=== PATIENT | female | born 1995 | race Caucasian/White ===

== ENCOUNTER 2016-11-19 16:31 | Emergency (ER) | payer MEDICAID ==
[~2016-11-19] VITALS: Ht 154.9 cm; Wt 90.7 kg
[2016-11-19 17:00] VITALS: BP 131/72; PULSE 81; RESP 16; TEMP 97.6; O2SAT 99
--- NOTE | 2016-11-19 17:00 | NUR ---
ER DISHWASHER BUSSER VARMA at TRIAGE examining patient.
--- NOTE | 2016-11-19 17:04 | NUR ---
Patient triaged and placed in waiting room. VSS and patient appears in no acute distress at this time. Accompanied by SON, awaiting available bed, and MD notified of need for MSE.
[2016-11-19] MEDS ORDERED: IBUPROFEN 600 MG TABLET PO ONE (17:15)
--- NOTE | 2016-11-19 17:28 | NUR ---
Patient to [facility] for evaluation. Side rails up. Report given to SAL BROWNLEE.
--- NOTE | 2016-11-19 17:35 | NUR ---
PT. TO ER FOR LEFT SHOULDER PAIN THAT RADIATES TO HER NECK AND LOWER ARM, STATES THAT SHE WAS PLAYING WITH HER DAUGHTER THIS MORNING AND PULLED MUSCLE PAIN 5/10, NO OTHER COMPLAINTS
--- NOTE | 2016-11-19 17:35 | NUR ---
ARINA HODGSON AT BEDSIDE EXAMINING THE PT.
[2016-11-19 18:20] VITALS: BP 126/77; PULSE 67; RESP 17; TEMP 98.4; O2SAT 99
--- NOTE | 2016-11-19 18:20 | NUR ---
Patient given written and verbal discharge instructions and verbalizes understanding. ER STEEL PLATE CAULKER ARINA discussed with patient the results and treatment provided. Patient in stable condition. ID arm band removed. Rx of NEPROXEN given. Patient educated on pain management and to follow up with PMD. Pain Scale 0/10 Opportunity for questions provided and answered.
== END 2016-11-19 18:20 | disposition home or self-care (01) ==
LOC: SED 16:31
DX: S46.912A Strain of unspecified muscle, fascia and tendon at shoulder and upper arm level, left arm, initial encounter (principal); X50.9XXA Other and unspecified overexertion or strenuous movements or postures, initial encounter; Y93.89 Activity, other specified; Y99.8 Other external cause status; Y92.89 Other specified places as the place of occurrence of the external cause
CPT/HCPCS: 73030; 81025; 99284

== ENCOUNTER 2017-02-23 21:25 | Emergency (ER) | payer MEDICAID ==
[~2017-02-23] VITALS: Ht 152.4 cm; Wt 90.7 kg
[2017-02-23 21:49] VITALS: BP_SYST 126
--- NOTE | 2017-02-23 23:08 | NUR ---
Patient triaged and placed in waiting room. VSS and patient appears in no acute distress at this time. Accompanied by partner , awaiting available bed, and MD notified of need for MSE.Report given to Nohemy
--- NOTE | 2017-02-23 23:24 | NUR ---
Patient to ER bed 3 to gown for evaluation. Side rails up. Report given to SAL DIAZ.
--- NOTE | 2017-02-23 23:35 | NUR ---
Pt came in for laceration of the R middle and R index fingers. Bleeding controlled. Will continue to monitor. No other injuries or complaints mentioned/noted. No distress noted.
--- NOTE | 2017-02-24 00:08 | NUR ---
ER Dr. Chaparro at bedside examining patient.
[2017-02-24] MEDS ORDERED: LIDOCAINE 1% 10 MG/ML, 20 ML MDV IJ ONE (00:30)
[2017-02-24] MEDS ORDERED: BACITRACIN 1 GM OINT TP ONE (00:30)
[2017-02-24 01:33] VITALS: BP_SYST 124
--- NOTE | 2017-02-24 01:33 | NUR ---
Patient given written and verbal discharge instructions and verbalizes understanding. ER MD discussed with patient the results and treatment provided. Patient in stable condition. ID arm band removed. No Rx of given. Patient educated on pain management and to follow up with PMD. Pain Scale 0/10 . Opportunity for questions provided and answered.
== END 2017-02-24 01:33 | disposition home or self-care (01) ==
LOC: SED 21:25
DX: S61.210A Laceration without foreign body of right index finger without damage to nail, initial encounter (principal); S61.212A Laceration without foreign body of right middle finger without damage to nail, initial encounter; X58.XXXA Exposure to other specified factors, initial encounter; Y93.89 Activity, other specified; Y92.89 Other specified places as the place of occurrence of the external cause; Y99.8 Other external cause status
CPT/HCPCS: 12001; 99283; J2001

== ENCOUNTER 2017-03-02 17:40 | Emergency (ER) | payer MEDICAID ==
[~2017-03-02] VITALS: Ht 152.4 cm; Wt 90.7 kg
[2017-03-02 17:51] VITALS: BP_SYST 150
[2017-03-02 18:47] VITALS: BP_SYST 150
== END 2017-03-02 18:47 | disposition home or self-care (01) ==
LOC: SED 17:40
DX: S61.210D Laceration without foreign body of right index finger without damage to nail, subsequent encounter (principal); X58.XXXD Exposure to other specified factors, subsequent encounter; Y92.89 Other specified places as the place of occurrence of the external cause; Y99.8 Other external cause status
CPT/HCPCS: 99283

== ENCOUNTER 2017-03-11 13:36 | Emergency (ER) | payer MEDICAID ==
[~2017-03-11] VITALS: Ht 152.4 cm; Wt 90.7 kg
[2017-03-11 14:40] VITALS: BP_SYST 126
--- NOTE | 2017-03-11 14:40 | NUR ---
Patient triaged and placed in waiting room. VSS and patient appears in no acute distress at this time. Accompanied by self, awaiting available bed, and MD ZIMMER complete
--- NOTE | 2017-03-11 14:40 | NUR ---
Pt seen and evaluated by Dr. Walls
--- NOTE | 2017-03-11 15:18 | NUR ---
Patient given written and verbal discharge instructions and verbalizes understanding. ER MD discussed with patient the results and treatment provided. Patient in stable condition. ID arm band removed. Rx of cephalexin given. Patient educated on pain management and to follow up with PMD. Pain Scale 0/10. Opportunity for questions provided and answered.
[2017-03-11 15:19] VITALS: BP_SYST 126
== END 2017-03-11 15:19 | disposition home or self-care (01) ==
LOC: SED 13:36
DX: H10.9 Unspecified conjunctivitis (principal)
CPT/HCPCS: 99283

== ENCOUNTER 2017-03-26 16:37 | Emergency (ER) | payer MEDICAID ==
[~2017-03-26] VITALS: Ht 152.4 cm; Wt 96.2 kg
[2017-03-26 16:37] VITALS: BP_SYST 133
[2017-03-26] MEDS ORDERED: ONDANSETRON 4 MG ODT TAB PO ONE (17:00)
[2017-03-26] MEDS ORDERED: MECLIZINE HCL 25 MG TABLET (ANITVERT) PO ONE (17:00)
[2017-03-26 17:13] LABS: BASOPHILS # (AUTO) 0.1 K/uL (0.0-0.2); BASOPHILS % (AUTO) 0.6 % (0.0-2.0); EOSINOPHILS % (AUTO) 0.3 % (0.0-4.0); HEMATOCRIT 43.5 % (36-48); HEMOGLOBIN 14.4 g/dL (12.0-16.0); LYMPHOCYTES # (AUTO) 1.8 K/uL (1.0-5.5); LYMPHOCYTES % (AUTO) 11.4 % (20.5-51.5); MEAN CORPUSCULAR HEMOGLOBIN 29 pg (27-31); MEAN CORPUSCULAR HGB CONC 33 % (32-36); MEAN CORPUSCULAR VOLUME 86 fL (79.0-98.0); MONOCYTES # (AUTO) 0.7 K/uL (0.0-1.0); MONOCYTES % (AUTO) 4.2 % (1.7-9.3); NEUTROPHILS # (AUTO) 12.9 K/uL (1.8-7.7); NEUTROPHILS % (AUTO) 83.5 % (40.0-70.0); PLATELET COUNT (AUTO) 306 K/uL (130-430); RED BLOOD CELL COUNT(AUTO) 5.06 MIL/uL (4.2-6.2); RED CELL DISTRIBUTION WIDTH 12.2 % (9.0-15.0); WHITE BLOOD COUNT (AUTO) 15.5 K/uL (4.8-10.8)
[2017-03-26 17:29] LABS: PROTHROMBIN TIME 10.8 SECS (9.5-12.5)
[2017-03-26 17:31] LABS: ANION GAP 8 (5-15); CALCIUM 8.6 mg/dL (8.4-11.0); CHLORIDE 107 mmol/L (98-107); CREATININE 0.77 mg/dL (0.55-1.30); GLUCOSE 109 mg/dL (70-99); POTASSIUM 3.4 mmol/L (3.5-5.1); SODIUM SERUM 141 mmol/L (136-145); UREA NITROGEN, BLOOD 13 mg/dL (8-21)
[2017-03-26 17:34] LABS: GFR AFRICAN AMERICAN 118 mL/min (>90)
[2017-03-26 17:35] LABS: ACETAMINOPHEN < 1 ug/mL (1-30); ALCOHOL, BLOOD < 3 mg/dL (<10); SALICYLATE 3 mg/dL (3-30)
[2017-03-26] MEDS ORDERED: NACL 0.9% 1,000 ML IV ONE (18:30)
[2017-03-26 18:43] LABS: BILIRUBIN,URINE NEGATIVE (NEGATIVE); BLOOD, URINE NEGATIVE (NEGATIVE); CLARITY/URINE HAZY (CLEAR); COLOR,URINE YELLOW (YELLOW); GLUCOSE,URINE NEGATIVE (NEGATIVE); KETONES,URINE NEGATIVE (NEGATIVE); LEUKOCYTE ESTERASE ,URINE NEGATIVE (NEGATIVE); NITRITE, URINE NEGATIVE (NEGATIVE); PH,URINE 6.5 (5.0-8.0); PROTEIN URINE NEGATIVE (NEGATIVE); UROBILINOGEN,URINE 0.2 (0.2-1.0)
[2017-03-26 18:56] LABS: BARBITURATE, URINE NEGATIVE (NEG <=200); BENZODIAZEPINE, URINE NEGATIVE (NEG <=150); CANNABINOID, URINE NEGATIVE (NEG <=50); COCAINE, URINE NEGATIVE (NEG <=150); METHAMPHETAMINES SCREEN,URINE NEGATIVE (NEG <=500); OPIATE, URINE NEGATIVE (NEG <=100); PHENCYCLIDINE SCREEN,URINE NEGATIVE (NEG <=25); UR TRICYCLIC ANTIDEPRESSANTS NEGATIVE (NEG <=300); URINE AMPHETAMINE NEGATIVE (NEG <=500); URINE METHADONE NEGATIVE (NEG <=200); URINE OXYCODONE SCREEN NEGATIVE (NEG <=100); URINE PROPOXYPHENE SCREEN NEGATIVE (NEG <=300)
[2017-03-26] MEDS ORDERED: POTASSIUM CHLORIDE 10 MEQ TAB.PRT.SR PO ONE (19:15)
[2017-03-26] MEDS ORDERED: cefTRIAXone 1 GM IVPB PREMIX 50 ML IV ONE (19:15)
[2017-03-26] MEDS ORDERED: ONDANSETRON HCL 4 MG/2 ML VIAL IVP ONE (19:45)
[2017-03-26 20:50] VITALS: BP_SYST 133
== END 2017-03-26 20:50 | disposition home or self-care (01) ==
LOC: SED 16:37
DX: H66.90 Otitis media, unspecified, unspecified ear (principal); R42 Dizziness and giddiness
CPT/HCPCS: 36415; 70450; 71020; 80048; 80307; 81003; 81025; 84484; 85025; 85610; 85730; 93005; 96365; 96375; 99285; G0480; G0481; G0482; J0696; J2405; J7030; J8597; Q0162

== ENCOUNTER 2017-06-09 12:58 | Emergency (ER) | payer MEDICAID ==
[~2017-06-09] VITALS: Ht 152.4 cm; Wt 95.3 kg
[2017-06-09 13:00] VITALS: BP_SYST 110
[2017-06-09 13:50] LABS: BILIRUBIN,URINE NEGATIVE (NEGATIVE); BLOOD, URINE NEGATIVE (NEGATIVE); CLARITY/URINE SL HAZY (CLEAR); COLOR,URINE YELLOW (YELLOW); GLUCOSE,URINE NEGATIVE (NEGATIVE); KETONES,URINE NEGATIVE (NEGATIVE); LEUKOCYTE ESTERASE ,URINE NEGATIVE (NEGATIVE); NITRITE, URINE NEGATIVE (NEGATIVE); PROTEIN URINE NEGATIVE (NEGATIVE); UROBILINOGEN,URINE 0.2 (0.2-1.0)
[2017-06-09] MEDS ORDERED: PHENAZOPYRIDINE HCL 100 MG TABLET PO ONE (14:00)
[2017-06-09 15:31] VITALS: BP_SYST 110
== END 2017-06-09 15:31 | disposition home or self-care (01) ==
LOC: SED 12:58
DX: N76.0 Acute vaginitis (principal)
CPT/HCPCS: 81003; 81025; 87210-TC; 99284

== ENCOUNTER 2017-08-18 08:25 | Emergency (ER) | payer MEDICAID ==
[~2017-08-18] VITALS: Ht 152.4 cm; Wt 97.5 kg
[2017-08-18 08:33] VITALS: BP_SYST 124
[2017-08-18] MEDS ORDERED: IBUPROFEN 800 MG TABLET PO ONE (08:45)
[2017-08-18 09:16] LABS: BASOPHILS % (AUTO) 0.5 % (0.0-2.0); EOSINOPHILS # (AUTO) 0.1 K/uL (0.0-0.4); EOSINOPHILS % (AUTO) 1.9 % (0.0-4.0); HEMOGLOBIN 14.4 g/dL (12.0-16.0); LYMPHOCYTES # (AUTO) 1.5 K/uL (1.0-5.5); LYMPHOCYTES % (AUTO) 30.8 % (20.5-51.5); MEAN CORPUSCULAR HEMOGLOBIN 29 pg (27-31); MEAN CORPUSCULAR HGB CONC 34 % (32-36); MEAN CORPUSCULAR VOLUME 86 fL (79.0-98.0); MONOCYTES # (AUTO) 0.5 K/uL (0.0-1.0); MONOCYTES % (AUTO) 10.3 % (1.7-9.3); NEUTROPHILS # (AUTO) 2.8 K/uL (1.8-7.7); NEUTROPHILS % (AUTO) 56.5 % (40.0-70.0); PLATELET COUNT (AUTO) 272 K/uL (130-430); RED BLOOD CELL COUNT(AUTO) 5.01 MIL/uL (4.2-6.2); RED CELL DISTRIBUTION WIDTH 11.9 % (9.0-15.0); WHITE BLOOD COUNT (AUTO) 4.9 K/uL (4.8-10.8)
[2017-08-18 09:22] LABS: CALCIUM 9.3 mg/dL (8.4-11.0); CREATININE 0.7 mg/dL (0.55-1.30); POTASSIUM 3.9 mmol/L (3.5-5.1)
[2017-08-18 10:01] VITALS: BP_SYST 119
== END 2017-08-18 10:01 | disposition home or self-care (01) ==
LOC: SED 08:25
DX: R07.89 Other chest pain (principal)
CPT/HCPCS: 36415; 71020-TC; 80048; 81025; 84484; 85025; 93005; 99285

== ENCOUNTER 2017-09-05 04:21 | Emergency (ER) | payer MEDICAID ==
[~2017-09-05] VITALS: Ht 162.6 cm; Wt 99.8 kg
[2017-09-05 04:39] VITALS: BP_SYST 99
[2017-09-05] MEDS ORDERED: NACL 0.9% 1,000 ML IV ONE ×2 (05:00→06:00)
[2017-09-05] MEDS ORDERED: ONDANSETRON HCL 4 MG/2 ML VIAL IVP ONE ×2 (05:00→06:00)
[2017-09-05 05:17] LABS: BASOPHILS % (AUTO) 0.8 % (0.0-2.0); EOSINOPHILS % (AUTO) 0.8 % (0.0-4.0); HEMATOCRIT 45.6 % (36-48); HEMOGLOBIN 14.9 g/dL (12.0-16.0); LYMPHOCYTES # (AUTO) 1.6 K/uL (1.0-5.5); LYMPHOCYTES % (AUTO) 31.7 % (20.5-51.5); MEAN CORPUSCULAR HEMOGLOBIN 28 pg (27-31); MEAN CORPUSCULAR HGB CONC 33 % (32-36); MEAN CORPUSCULAR VOLUME 87 fL (79.0-98.0); MONOCYTES # (AUTO) 0.3 K/uL (0.0-1.0); MONOCYTES % (AUTO) 5.7 % (1.7-9.3); NEUTROPHILS # (AUTO) 3.2 K/uL (1.8-7.7); PLATELET COUNT (AUTO) 296 K/uL (130-430); RED BLOOD CELL COUNT(AUTO) 5.26 MIL/uL (4.2-6.2); RED CELL DISTRIBUTION WIDTH 11.9 % (9.0-15.0); WHITE BLOOD COUNT (AUTO) 5.1 K/uL (4.8-10.8)
[2017-09-05 05:30] LABS: CALCIUM 9.2 mg/dL (8.4-11.0); CREATININE 0.73 mg/dL (0.55-1.30); POTASSIUM 3.6 mmol/L (3.5-5.1)
[2017-09-05 05:40] LABS: ALBUMIN 4.5 g/dL (3.4-4.8); TOTAL BILIRUBIN 0.4 mg/dL (0.0-1.0)
[2017-09-05 06:37] VITALS: BP_SYST 112
== END 2017-09-05 06:37 | disposition home or self-care (01) ==
LOC: SED 04:21
DX: K29.20 Alcoholic gastritis without bleeding (principal); F10.129 Alcohol abuse with intoxication, unspecified
CPT/HCPCS: 36415; 80053; 83690; 84702; 85025; 96361; 96374; 96376; 99285; J2405; J7030

== ENCOUNTER 2017-10-11 18:17 | Emergency (ER) | payer MEDICAID ==
[~2017-10-11] VITALS: Ht 152.4 cm; Wt 99.8 kg
[2017-10-11 18:23] VITALS: BP_SYST 121
[2017-10-11] MEDS ORDERED: IBUPROFEN 800 MG TABLET PO ONE (19:15)
[2017-10-11 20:10] VITALS: BP_SYST 124
== END 2017-10-11 20:10 | disposition home or self-care (01) ==
LOC: SED 18:17
DX: M25.561 Pain in right knee (principal); R03.0 Elevated blood-pressure reading, without diagnosis of hypertension; Z98.890 Other specified postprocedural states
CPT/HCPCS: 73564; 81025; 99284

== ENCOUNTER 2019-05-17 14:46 | Emergency (ER) | payer MEDICAID, OTHER ==
[~2019-05-17] VITALS: Ht 152.4 cm; Wt 104.3 kg
[2019-05-17 14:52] VITALS: BP_SYST 127
--- NOTE | 2019-05-17 14:59 | NUR ---
Patient triaged and placed in waiting room. VSS and patient appears in no acute distress at this time. Accompanied by self, awaiting available bed, and MD notified of need for MSE.
--- NOTE | 2019-05-17 16:09 | NUR ---
Patient to ER bed 7 to gown for evaluation. Side rails up. Report given to Ca HUANG.
[2019-05-17] MEDS ORDERED: ONDANSETRON 4 MG ODT TAB PO ONE (16:15)
--- NOTE | 2019-05-17 16:15 | NUR ---
Patient brought in complaining of diffuse cramping pelvic pain and light vaginal bleeding today around 1400 with nausea. Patient reports having peiod 2 weeks ago with heavier period than normal with clots. Denies any pain. No other complaints/injuries per patient or as noted. Will continue to monitor.
--- NOTE | 2019-05-17 16:33 | NUR ---
ER COLOR BLENDER Jammie Foster and SAL Penaloza bedside performing pelvic exam
--- NOTE | 2019-05-17 16:33 | NUR ---
ER GOKUL Foster at bedside examining patient.
[2019-05-17 16:37] LABS: BASOPHILS % (AUTO) 0.7 % (0.0-2.0); EOSINOPHILS # (AUTO) 0.1 K/uL (0.0-0.4); EOSINOPHILS % (AUTO) 2.5 % (0.0-4.0); HEMATOCRIT 41.1 % (36-48); HEMOGLOBIN 13.8 g/dL (12.0-16.0); LYMPHOCYTES % (AUTO) 42.1 % (20.5-51.5); MEAN CORPUSCULAR HEMOGLOBIN 30 pg (27-31); MEAN CORPUSCULAR HGB CONC 34 % (32-36); MEAN CORPUSCULAR VOLUME 89 fL (79.0-98.0); MONOCYTES # (AUTO) 0.4 K/uL (0.0-1.0); NEUTROPHILS # (AUTO) 2.2 K/uL (1.8-7.7); NEUTROPHILS % (AUTO) 45.7 % (40.0-70.0); PLATELET COUNT (AUTO) 275 K/uL (130-430); RED BLOOD CELL COUNT(AUTO) 4.62 MIL/uL (4.2-6.2); RED CELL DISTRIBUTION WIDTH 12.8 % (9.0-15.0); WHITE BLOOD COUNT (AUTO) 4.8 K/uL (4.8-10.8)
--- NOTE | 2019-05-17 16:44 | NUR ---
[facility] LEFT IN WHEELCHAIR IN STABLE CONDITION.
--- NOTE | 2019-05-17 16:56 | NUR ---
PATIENT IN PELVIC ULTRASOUND WITH ULTRASOUND STAFF, SAL CHRISTIANSON BRANCH GENERAL MANAGER
[2019-05-17 16:58] LABS: BILIRUBIN,URINE NEGATIVE (NEGATIVE); BLOOD, URINE 1+ (NEGATIVE); CLARITY/URINE HAZY (CLEAR); COLOR,URINE YELLOW (YELLOW); GLUCOSE,URINE NEGATIVE (NEGATIVE); KETONES,URINE NEGATIVE (NEGATIVE); LEUKOCYTE ESTERASE ,URINE NEGATIVE (NEGATIVE); NITRITE, URINE NEGATIVE (NEGATIVE); PH,URINE 6.5 (5.0-8.0); PROTEIN URINE NEGATIVE (NEGATIVE); UROBILINOGEN,URINE 0.2 (0.2-1.0)
[2019-05-17 17:09] LABS: ALANINE AMINOTRANSFERASE 38 U/L (12-78); ALBUMIN 3.7 g/dL (3.4-4.8); ANION GAP < 3 (5-15); ASPARTATE AMINOTRANSFERASE 22 U/L (10-37); CALCIUM 9.2 mg/dL (8.4-11.0); CHLORIDE 105 mmol/L (98-107); CREATININE 0.92 mg/dL (0.55-1.30); GFR AFRICAN AMERICAN 95 mL/min (>90); GLUCOSE 129 mg/dL (70-99); POTASSIUM 3.8 mmol/L (3.5-5.1); SODIUM SERUM 138 mmol/L (136-145); TOTAL BILIRUBIN 0.3 mg/dL (0.0-1.0); UREA NITROGEN, BLOOD 17 mg/dL (8-21)
[2019-05-17 17:15] LABS: BACTERIA,URINE FEW /HPF (None Seen); MUCUS,URINE 3+ /LPF (None Seen); RBC,URINE 0-3 /HPF (0-3)
[2019-05-17 17:16] LABS: URINE AMORPHOUS URATE 2+ /HPF (None Seen)
[2019-05-17 18:05] VITALS: BP_SYST 127
--- NOTE | 2019-05-17 18:05 | NUR ---
Patient given written and verbal discharge instructions and verbalizes understanding. ER MD discussed with patient the results and treatment provided. Patient in stable condition. ID arm band removed. Rx of pyridium, flagyl, motrin, cephalexin given. Patient educated on pain management and to follow up with PMD. Pain Scale 2/10. Opportunity for questions provided and answered. Medication side effect fact sheet provided.
[2019-05-19 02:08] LABS: CHLAMYDIA TRACHOMATIS NAA Negative (Negative); NEISSERIA GONORRHOEAE NAA Negative (Negative)
== END 2019-05-17 18:05 | disposition home or self-care (01) ==
LOC: SED 14:46
DX: N76.0 Acute vaginitis (principal); N30.90 Cystitis, unspecified without hematuria; N83.202 Unspecified ovarian cyst, left side; N83.201 Unspecified ovarian cyst, right side; R03.0 Elevated blood-pressure reading, without diagnosis of hypertension; Z98.890 Other specified postprocedural states
CPT/HCPCS: 36415; 76830; 76857; 80053; 81000; 81025; 85025; 87210; 87491; 87591; 99284; Q0162